=== PATIENT | male | born 1995 | race Caucasian/White ===

== ENCOUNTER 2022-10-30 02:28 | Emergency (ER) | payer OTHER ==
[~2022-10-30] VITALS: Ht 167.6 cm; Wt 66.0 kg
[2022-10-30 02:34] VITALS: PULSE 89
[2022-10-30 02:38] VITALS: BP 144/81; RESP 12; TEMP 100; O2SAT 98
[2022-10-30] MEDS ORDERED: NAPR375T5 MT (03:55)
[2022-10-30] MEDS ORDERED: PSEU120T56 MT (03:55)
[2022-10-30] MEDS ORDERED: DEXAMETHASONE 0.5MG/5ML ORAL SYR PO ONE (04:00)
[2022-10-30] MEDS ORDERED: IBUPROFEN 600MG TABLET PO ONE (04:00)
[2022-10-30] MEDS: DEXAMETHASONE 4MG/ML 1ML VIAL PO NR ×2 (04:06→04:07)
== END 2022-10-30 04:10 | disposition home or self-care (01) ==
LOC: ER 02:28
DX: J02.9 Acute pharyngitis, unspecified (principal); B34.9 Viral infection, unspecified
CPT/HCPCS: 87430; 87070; 87077; 99283; J1100; Z7610; J8540